=== PATIENT | female | born 1970 | race Caucasian/White ===

== ENCOUNTER → 2020-01-05 | Day surgery (SDC) | payer OTHER ==
[~2020-01-05] MED LIST: FENTANYL CITRATE/PF 100MCG/2 ML INJ ONE; LIDOCAINE HCL 2% LOCAL INJ 5 ML SDV VIAL INJ ONE; MIDAZOLAM HCL 2 MG/2 ML VIAL ONE; MULTI-VITAMIN1 EACH PO; PROPOFOL IV EMULSION 10 MG/ML 20 ML VIAL ONE; SYNTHROID75 MCG PO
[2020-01-05 07:50] VITALS: BP 118/78
--- NOTE | 2020-01-05 13:19 | Operative Report ---
DATE OF PROCEDURE: 01/05/2020 SURGEON: Sarwat Simpson MD PREOPERATIVE DIAGNOSIS: Chronic gastroesophageal reflux disease. POSTOPERATIVE DIAGNOSES: 1. Hiatal hernia. 2. Esophagitis. 3. Chronic gastroesophageal reflux disease. PREOPERATIVE INDICATION: Assess for upper GI, mucosal disease. PROCEDURE: Esophagogastroduodenoscopy with esophageal biopsy (CPT 59067). ANESTHESIA: Moderate sedation with IV propofol. ASSISTANTS: None. FLUIDS: As per anesthesia. EBL: Minimal. DRAINS: None. COMPLICATIONS: None. SPECIMENS: Esophageal biopsy x2 with cold forceps. GRAFTS: None. FINDINGS: 1. Small hiatal hernia. 2. Distal esophagitis with mild erythema. PROCEDURE IN DETAIL: The patient was brought to the endoscopy suite and was sedated with IV propofol. A preprocedure pause was performed identifying the patient and the intended procedure. An adult sized endoscope was introduced to the oropharynx and guided to the 2nd portion of the duodenum. No gastric or duodenal abnormalities were noted. There was a small hiatal hernia with distal esophagitis circumferentially at the GE junction. This was biopsied x2 with the cold forceps. Prior to removing the endoscope, the stomach was desufflated. The patient tolerated the procedure well. Type of wound is type 1, clean. Sarwat Simpson MD [facility] /[id number]
== END | disposition home or self-care (01) ==
LOC: OR 05:13
PROVIDERS: ATTEND Surgery
DX: K21.0 Gastro-esophageal reflux disease with esophagitis (principal); K44.9 Diaphragmatic hernia without obstruction or gangrene; G47.33 Obstructive sleep apnea (adult) (pediatric); E03.9 Hypothyroidism, unspecified; I10 Essential (primary) hypertension; E66.01 Morbid (severe) obesity due to excess calories; E78.5 Hyperlipidemia, unspecified; Z88.0 Allergy status to penicillin; Z01.812 Encounter for preprocedural laboratory examination; Z11.59 Encounter for screening for other viral diseases; Z68.35 Body mass index [BMI] 35.0-35.9, adult
CPT/HCPCS: 43239; 87635; 88305; 93005; J2001; J2250; J2704; J3010

== ENCOUNTER 2020-06-21 05:58 | Inpatient (IN) | payer OTHER ==
[~2020-06-21] VITALS: Ht 167.6 cm; Wt 102.1 kg
[~2020-06-21 05:58] MED LIST changes: -FENTANYL CITRATE/PF 100MCG/2 ML INJ ONE; +FISH OIL 1,0001 EAC2 PO; -LIDOCAINE HCL 2% LOCAL INJ 5 ML SDV VIAL INJ ONE; -MIDAZOLAM HCL 2 MG/2 ML VIAL ONE; -PROPOFOL IV EMULSION 10 MG/ML 20 ML VIAL ONE; +VIT D PO; +ZINC SULFATE220 MG PO
[2020-06-21] MEDS ORDERED: LEVOFLOXACIN 500MG/D5W 100ML 100 ML IV ONE (06:29)
[2020-06-21] MEDS ORDERED: BUPIVACAINE 0.25% 30ML SDV ONE (07:23)
[2020-06-21] MEDS ORDERED: HYDROMORPHONE 1MG/1ML INJ ONE (08:42)
[2020-06-21] MEDS ORDERED: ACETAMINOPHEN 1000 MG/100 ML 100 ML IV ONE (08:42)
[2020-06-21] MEDS ORDERED: PROMETHAZINE HCL (IM) 25 MG/ML VIAL IM ONE (10:03)
--- OUTSIDE RECORDS SUMMARY | 2020-06-21 10:21 | XMS REPORT | Clinical Summary ---
Author Author [facility] Organization [place] [facility] Address Unknown Phone Unavailable Care Team Providers Care Sea Foam Kiss Maker Name Role Phone Asiya Patel MD PCP Allergies Comments Active Allergy Reactions Severity Noted Date Penicillins Anaphylaxis High 01/11/2015 Medications End Date Status Medication Sig Dispensed Refills Start Date Active multivitamin,hp-avhc-Zl-F Take 1 tablet 0 A-min (UNI-THERA M) by mouth. 27-0.4 mg tablet 09/09/2020 Active clobetasoL (TEMOVATE) Apply 30 g 0 08/23 0.05 % ointment topically 2 0 (two) times a day. Active Synthroid 75 mcg tablet TAKE ONE (1) 30 tablet 0 1 TABLET (75 0 MCG TOTAL) BY MOUTH EVERY MORNING. (NEEDS APPT). 11/06/2019 Discontinued (Reorder) SYNTHROID 75 mcg tablet 0 0 11/06/2019 Discontinued (Therapy comple janice) ondansetron ODT Take 4 mg by 0 (ZOFRAN-ODT) 4 MG mouth. 9 disintegrating tablet 11/06/2019 Discontinued (Therapy comple janice) buPROPion XL (WELLBUTRIN Take 1 tablet 30 tablet 1 XL) 150 MG 24 hr tablet (150 mg 0 total) by mouth daily. 11/06/2019 Discontinued (Therapy comple janice) escitalopram (LEXAPRO) 10 Take 1 tablet 90 tablet 1 MG tablet (10 mg total) 0 by mouth daily for 90 days. Discontinued (Reorder) Synthroid 75 mcg tablet Take 1 tablet 90 tablet 1 (75 mcg 0 total) by mouth every morning. Discontinued (Reorder) Synthroid 75 mcg tablet TAKE 1 TABLET 30 tablet 0 (75 MCG 0 TOTAL) BY MOUTH EVERY MORNING. Active Problems Problem Noted Date FHx: kidney cancer 09/10/2019 Overview: sister, early age FHx: type 2 diabetes mellitus 09/10/2019 Gall stone 09/10/2019 Cedric's thyroiditis 09/10/2019 Hypothyroid 09/10/2019 Scoliosis 09/10/2019 Anxiety 12/12/2016 Fatigue 12/12/2016 Mild depression 12/12/2016 Encounters Care Team Description Date Type Specialty Asiya Patel MD 06/17/2020 Refill Internal Medicine Asiya Patel MD 05/18/2020 Refill Internal Medicine Asiya Patel MD BMI 35.0-35.9,adult (Primary Dx); Mixed hyperlipidemia 11/28/2019 Telemedicine Internal Medicine Asiya Patel MD 11/21/2019 Telephone Internal Medicine Asiya Patel MD Mixed hyperlipidemia (Primary Dx); Stress; Dyspepsia 11/06/2019 Telemedicine Internal Medicine 11/04/2019 Amarilys Robles MA 10/15/2019 Telephone Internal Medicine 10/01/2019 Travel Asiya Patel MD 09/18/2019 Telephone Internal Medicine Asiya Patel MD Routine general medical examination at a health care facility (Primary Dx); Screening for diabetes mellitus; 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; Abnormal menstrual cycle; History of endometrial ablation; Anxiety and depression; Calculus of gallbladder without cholecystitis without obstruction; Kidney stone; Abnormal blood chemistry; Restless sleeper; Screening for lipoid disorders; Family history of breast cancer in female; Fatigue, unspecified type; BMI 34.0-34.9,adult 09/10/2019 Office Visit Internal Medicine after 06/21/2019 Immunizations Name Administration Dates Next Due FLUZONE QUAD 04/04/2018, 05/16/2015 FLUZONE QUAD PF 05/07/2019 Tdap 09/16/2015 Surgical History Surgery Date Site/Laterality Comments REDUCTION MAMMAPLASTY SECTION Medical History Medical History Date Comments Hyperthyroidism Depression Anxiety Family History Medical History Relation Name Comments Pancreatic cancer Father Breast cancer Mother Breast cancer Sister Kidney cancer Sister Relation Name Status Comments Father Mother Alive Sister Alive Social History Date Tobacco Use Types Packs/Day Years Used Never Smoker Smokeless Tobacco: Never Used Drinks/Week oz/Week Comments Alcohol Use Yes Alcohol Habits Answer Date Recorded How often do you have a drink containing alcohol? Monthly or less 09/10/2019 How many drinks containing alcohol do you have on 1 or 2 09/10/2019 a typical day when you are drinking? How often do you have six or more drinks on one Never 09/10/2019 occasion? Sex Assigned at Date Recorded Not on file Last Filed Vital Signs Reading Time Taken Comments Vital Sign 113/79 09/10/2019 1:11 PM RESIDENT BUYER Blood Pressure 70 09/10/2019 1:11 PM RESIDENT BUYER Pulse - - Temperature 20 09/10/2019 1:11 PM RESIDENT BUYER Respiratory Rate 94% 09/10/2019 1:11 PM RESIDENT BUYER Oxygen Saturation - - Inhaled Oxygen Concentration 99.8 kg (220 lb) 11/28/2019 1:39 PM CDT Weight 167.6 cm (5' 6") 09/10/2019 1:11 PM RESIDENT BUYER Height 35.51 09/10/2019 1:11 PM RESIDENT BUYER Body Mass Index Plan of Treatment Health Maintenance Due Date Last Done Comments CERVICAL CANCER SCREENING 1991 INFLUENZA VACCINE 02/21/2020 05/07/2019, 04/04/2018, 05/16/2015 BREAST CANCER SCREENING 2020 COLONOSCOPY SCREENING 2020 SHINGLES VACCINES (#1) 2020 Procedures Comments Procedure Name Priority Date/Time Associated Diag nosis MAGNESIUM, RBC Routine 09/16/2019 Fatigue, unspec ified type 11:21 AM RESIDENT BUYER CRP HIGH SENSITIVITY Routine 09/16/2019 Routine g eneral medical 11:21 AM RESIDENT BUYER examination at a [facility] facility INSULIN, RANDOM Routine 09/16/2019 Routine genera l medical 11:21 AM RESIDENT BUYER examination at a [facility] facility THYROID PEROXIDASE Routine 09/16/2019 Routine gen eral medical ANTIBODY 11:21 AM RESIDENT BUYER examination at a [facility] 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 ESTRADIOL LEVEL Routine 09/16/2019 Routine genera l medical 11:21 AM RESIDENT BUYER examination at a [facility] FSH AND LH Routine 09/16/2019 Routine general medical 11:21 AM RESIDENT BUYER examination at a [facility] VITAMIN D 25 HYDROXY Routine 09/16/2019 Routine g eneral medical LEVEL 11:21 AM RESIDENT BUYER examination at a [facility] BMI 34.0-34.9,adult VITAMIN B12 LEVEL Routine 09/16/2019 Routine gene ral medical 11:21 AM RESIDENT BUYER examination at a [facility] Fatigue, unspecified type BMI 34.0-34.9,adult THYROID STIMULATING Routine 09/16/2019 Routine ge neral medical HORMONE 11:21 AM RESIDENT BUYER examination at a [facility] 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 Fatigue, unspecified type URINALYSIS, COMPLETE, Routine 09/16/2019 Routine general medical WITH REFLEX TO CULTURE 11:21 AM RESIDENT BUYER examination at a [facility] LIPID PANEL Routine 09/16/2019 Routine general medical 11:21 AM RESIDENT BUYER examination at a [facility] HEMOGLOBIN A1C Routine 09/16/2019 Routine general medical 11:21 AM RESIDENT BUYER examination at a [facility] Abnormal blood chemistry Screening for lipoid disorders COMPREHENSIVE METABOLIC Routine 09/16/2019 Routin e general medical PANEL 11:21 AM RESIDENT BUYER examination at a [facility] Restless sleeper CBC WITH PLATELET AND Routine 09/16/2019 Routine general medical DIFFERENTIAL 11:21 AM RESIDENT BUYER examination at a [facility] URINE CULTURE Routine 09/16/2019 11:21 AM RESIDENT BUYER HELICOBACTER PYLORI Routine 09/16/2019 Routine ge neral medical BREATH TEST 11:21 AM RESIDENT BUYER examination at a [facility] after 06/21/2019 Results * URINALYSIS, COMPLETE, WITH REFLEX TO CULTURE (09/16/2019 11:21 AM RESIDENT BUYER) Color, UA YELLOW YELLOW [facility] [place] Appearance CLEAR CLEAR [facility] [place] Specific 1.009 1.001 - 1.035 [facility] gravity, urine [facility] [place] pH, urine 6.0 5.0 - 8.0 [facility] [place] Glucose, urine NEGATIVE NEGATIVE [facility] [place] Bilirubin, UA NEGATIVE NEGATIVE [facility] [place] Ketones, UA 1+ (A) NEGATIVE [facility] [place] Occult blood, 1+ (A) NEGATIVE [facility] urine [facility] [place] Protein, UA NEGATIVE NEGATIVE [facility] [place] Nitrite, UA NEGATIVE NEGATIVE [facility] [place] Leukocyte TRACE (A) NEGATIVE [facility] esterase, UA [facility] [place] WBC, UA NONE SEEN < OR = 5 /HPF [facility] [place] RBC, UA 0-2 < OR = 2 /HPF [facility] [place] Squamous 0-5 < OR = 5 /HPF [facility] epithelial [facility]NOSTICS cells, UA [place] Bacteria, UA NONE SEEN NONE SEEN /HPF [facility] [place] Hyaline casts, NONE SEEN NONE SEEN /LPF [facility] UA [facility] [place] Reflex CULTURE INDICATED - RESULTS TO [facility] FOLLOW [facility] [place] Specimen Narrative Performed At FASTING:YES [facility] FASTING: YES Resulting Agency Comment Performing Organization Information: Site ID: RGA Name: [facility] Address: [address] [place] [phone] Director: Jean Paul Hatfield Performing Organization Address City/State/ZIP Code P richard Number [facility] [address] [phone] * Thyroperoxidase antibody (09/16/2019 11:21 AM RESIDENT BUYER) Thyroperoxidase 1 <9 IU/mL [facility] Ab [facility] ING II Specimen Blood Narrative Performed At FASTING:YES [facility] FASTING: YES Resulting Agency Comment Performing Organization Information: Site ID: IG [facility]: [facility] Address: [address] [place] [address] Director: Dr. Jean Paul Hatfield Performing Organization Address City/State/ZIP Code P richard Number [facility] [address] [place] [address] II * Insulin, random (09/16/2019 11:21 AM RESIDENT BUYER) Insulin 8.1 uIU/mL [facility] Comment: [facility] Reference Range < or ING II = 19.6 Risk: Optimal < or = 19.6 Moderate NA High >19.6 Adult cardiovascular event risk category cut points (optimal, moderate, high) are based on [facility] population data from 06/2011. This insulin assay shows strong cross-reactivity for some insulin analogs (lispro, aspart, and glargine) and much lower cross-reactivity with others (detemir, glulisine). Specimen Blood Narrative Performed At FASTING:YES [facility] FASTING: YES Resulting Agency Comment Performing Organization Information: Site ID: IG Name: [facility] Address: [address] [place] [phone] Director: Dr. Jean Paul Hatfield Performing Organization Address [facility] P richard Number [id number] [address] II * Helicobacter pylori breath test (09/16/2019 11:21 AM RESIDENT BUYER) H. pylori NOT DETECTED NOT DETECTED [facility] breath test Comment: DIAGNOSTICS Antimicrobials, proton pump ADAMS inhibitors, and bismuth preparations are known to suppress H. pylori, and ingestion of these prior to H. pylori diagnostic testing may lead to false negative results. If clinically indicated, the test may be repeated on a new specimen obtained two weeks after discontinuing treatment. However, a positive result is still clinically valid. Specimen Narrative Performed At FASTING:YES [facility] FASTING: YES Resulting Agency Comment Performing Organization Information: Site ID: RGA Name: [facility] Address: [address] [place] [phone] Director: Jean Paul Hatfield Performing Organization Address [facility] P richard Number [facility] [address] [phone] * FSH and LH (09/16/2019 11:21 AM RESIDENT BUYER) Follicle 19.6 mIU/mL [facility] stimulating Comment: DIAGNOSTICS hormone [place] Reference Range Follicular Phase 2.5-10.2 Mid-cycle Peak 3.1-17.7 Luteal Phase 1.5- 9.1 Postmenopausal 23.0-116.3 Luteinizing 9.5 mIU/mL [facility] hormone Comment: DIAGNOSTICS Reference Range [place] Follicular Phase 1.9-12.5 Mid-Cycle Peak 8.7-76.3 Luteal Phase 0.5-16.9 Postmenopausal 10.0-54.7 Specimen Blood Narrative Performed At FASTING:YES [facility] FASTING: YES Resulting Agency Comment Performing Organization Information: Site ID: CAMILA Name: [facility] Address: [address] [place] [phone] Director: Jean Paul Hatfield Performing Organization Address [facility] P richard Number [place] [phone] * Vitamin D 25 hydroxy level (09/16/2019 11:21 AM RESIDENT BUYER) Vitamin D, 39 30 - 100 ng/mL [facility] 25-hydroxy Comment: DIAGNOSTICS Vitamin D Status [place] 25-OH Vitamin D: Deficiency: <20 ng/mL Insufficiency: 20 - 29 ng/mL Optimal: > or = 30 ng/mL For 25-OH Vitamin D testing on patients on D2-supplementation and patients for whom quantitation of D2 and D3 fractions is required, the QuestAssureD(TM) 25-OH VIT D, (D2,D3), LC/MS/MS is recommended: order code 64353 (patients >2yrs). For more information on this test, go to: http://education.Medivo.com/faq/NDS244 (This link is being provided for informational/educational purposes only.) Specimen Blood Narrative Performed At FASTING:YES [facility] FASTING: YES Resulting Agency Comment Performing Organization Information: Site ID: CAMILA Name: [facility] Address: [address] [place] [phone] Director: Jean Paul Hatfield Performing Organization Address [facility] P richard Number [place] [phone] * Estradiol level (09/16/2019 11:21 AM RESIDENT BUYER) Estradiol 24 pg/mL [facility] Comment: DIAGNOSTICS Reference Range [place] Follicular Phase: 19-144 Mid-Cycle: 64-357 Luteal Phase: 56-214 Postmenopausal: < or = 31 Reference range established on post-pubertal patient population. No pre-pubertal reference range established using this assay. For any patients for whom low Estradiol levels are anticipated (e.g. males, pre-pubertal children and hypogonadal/post-menopausal females), the [facility] Estradiol, Ultrasensitive, LCMSMS assay is recommended (order code 80890). Please note: patients being treated with the drug fulvestrant (Faslodex(R)) have demonstrated significant interference in immunoassay methods for estradiol measurement. The cross reactivity could lead to falsely elevated estradiol test results leading to an inappropriate clinical assessment of estrogen status. [facility] order code [id number], Ultrasensitive LC/MS/MS demonstrates negligible cross reactivity with fulvestrant. Specimen Blood Narrative Performed At FASTING:YES [facility] FASTING: YES Resulting Agency Comment Performing Organization Information: Site ID: RGA Name: [facility] Address: [address] [place] [phone] Director: Jean Paul Hatfield Performing Organization Address City/State/ZIP Code P richard Number [facility] [employer] [facility] [address] [place] [phone] * CBC with platelet and differential (09/16/2019 11:21 AM RESIDENT BUYER) WBC 7.2 3.8 - 10.8 [facility] Thousand/uL [facility] [place] RBC 4.44 3.80 - 5.10 [facility] Million/uL [facility] [place] HGB 13.8 11.7 - 15.5 g/dL [employer] [facility] HCT 40.7 35.0 - 45.0 % [employer] [place] MCV 91.7 80.0 - 100.0 fL [employer] [facility] [place] MCH 31.1 27.0 - 33.0 pg [employer] [facility] [place] MCHC 33.9 32.0 - 36.0 g/dL [employer]obby [place] RDW 12.3 11.0 - 15.0 % [employer] [facility] Platelet count 291 140 - 400 [facility] Thousand/uL [facility] MPV 9.8 7.5 - 12.5 fL [employer] [place] Neutrophils, 4,910 1,500 - 7,800 [facility] absolute cells/uL [facility] [place] Lymphocytes, 1,584 850 - 3,900 cells/uL [facility] absolute [facility] [place] Monocytes, 490 200 - 950 cells/uL [facility] absolute [facility] [place] Eosinophils, 173 15 - 500 cells/uL [facility] absolute [facility] [place] Basophils, 43 0 - 200 cells/uL [facility] absolute [facility] [place] Neutrophils 68.2 % [facility] [place] Lymphocytes 22.0 % [facility] [place] Monocytes 6.8 % [facility] [place] Eosinophils 2.4 % [facility] [place] Basophils + RC 0.6 % Hobby [place] Specimen Blood Narrative Performed At FASTING:YES [facility] FASTING: YES Resulting Agency Comment Performing Organization Information: Site ID: RGA Name: [facility] Address: [address] [place] [phone] Director: Jean Paul Hatfield Performing Organization Address [facility] P richard Number [employer] [facility] [address] [place] [phone] * Urine culture (09/16/2019 11:21 AM RESIDENT BUYER) Urine culture SEE NOTE [facility] Comment: DIAGNOSTICS CULTURE, URINE, ROUTINE [place] Micro Number: [id number] Test Status: Final Specimen Source: URINE Specimen Quality: Adequate Result: Single organism less than 10,000 CFU/mL isolated. These organisms, commonly found on external and internal genitalia, are considered colonizers. No further testing performed. Specimen Narrative Performed At FASTING:YES [facility] FASTING: YES Resulting Agency Comment Performing Organization Information: Site ID: RGA Name: [facility] Address: [address] [place] [phone] Director: Jean Paul Hatfield Performing Organization Address [facility] P richard Number [employer] [facility] [address] [place] [phone] * CRP high sensitivity (09/16/2019 11:21 AM RESIDENT BUYER) CRP, high 2.4 mg/L [facility] sensitivity Comment: [facility] Reference Range ING II Optimal <1.0 Lupe PS et al. Endocr Pract.2017;23(Suppl 2):1-87. For ages >17 Years: hs-CRP mg/L Risk According to AHA/CDC Guidelines <1.0 Lower relative cardiovascular risk. 1.0-3.0 Average relative cardiovascular risk. 3.1-10.0 Higher relative cardiovascular risk. Consider retesting in 1 to 2 weeks to exclude a benign transient elevation in the baseline CRP value secondary to infection or inflammation. >10.0 Persistent elevation, upon retesting, may be associated with infection and inflammation. Specimen Blood Narrative Performed At FASTING:YES [facility] FASTING: YES Resulting Agency Comment Performing Organization Information: Site ID: IG Name: [facility] Address: [address] [place] [address] Director: Dr. Jean Paul Hatfield Performing Organization Address City/State/ZIP Code P richard Number [employer] [facility] [address] [place] [address] II * T3 (09/16/2019 11:21 AM RESIDENT BUYER) T3 98 76 - 181 ng/dL [facility] [place] Specimen Blood Narrative Performed At FASTING:YES [facility] FASTING: YES Resulting Agency Comment Performing Organization Information: Site ID: RGA Name: [facility] Address: [address] [place] [phone] Director: Jean Paul Hatfield Performing Organization Address [facility]/ZIP [facility] P richard Number [employer] [address] [phone] * Thyroid stimulating hormone (09/16/2019 11:21 AM RESIDENT BUYER) TSH 1.84 mIU/L [facility] Comment: DIAGNOSTICS Reference Range [place] > or = 20 Years 0.40-4.50 Ranges First trimester 0.26-2.66 Second trimester 0.55-2.73 Third trimester 0.43-2.91 Specimen Blood Narrative Performed At FASTING:YES [facility] FASTING: YES Resulting Agency Comment Performing Organization Information: Site ID: RGA Name: [facility] Address: [address] [place] [phone] Director: Jean Paul Hatfield Performing Organization Address [facility] P richard Number [employer] [address] [phone] * T4, free (09/16/2019 11:21 AM RESIDENT BUYER) T4, free 1.3 0.8 - 1.8 ng/dL [facility] [employer] [place] Specimen Blood Narrative Performed At FASTING:YES [facility] FASTING: YES Resulting Agency Comment Performing Organization Information: Site ID: RGA Name: [facility] Address: [address] [place] [phone] Director: Jean Paul Hatfield Performing Organization Address City/[facility]/ZIP Code P richard Number [facility] [address] [phone] * Magnesium, RBC (09/16/2019 11:21 AM RESIDENT BUYER) Magnesium RBC 5.6 4.0 - 6.4 mg/dL [facility] Comment: DIAGNOSTICS This test was developed and [employer] its analytical performance ANGULO characteristics have been determined by [facility]. It has not been cleared or approved by the FDA. This assay has been validated pursuant to the CLIA regulations and is used for clinical purposes. Specimen Blood Narrative Performed At FASTING:YES [facility] FASTING: YES Resulting Agency Comment Performing Organization Information: Site ID: SLI [facility]: [facility] Address: [address] [place] [phone] Director: Josué Aleman M.D., Ph.D Performing Organization Address City/[facility]/ZIP Code P richard Number [facility] [employer] [phone] [place] * Hemoglobin A1c (09/16/2019 11:21 AM RESIDENT BUYER) Hemoglobin A1C 5.1 <5.7 % of total Hgb [facility] Comment: DIAGNOSTICS For the purpose of screening [place] for the presence of diabetes: <5.7% Consistent with the absence of diabetes 5.7-6.4% Consistent with increased risk for diabetes (prediabetes) > or =6.5% Consistent with diabetes This assay result is consistent with a decreased risk of diabetes. Currently, no consensus exists regarding use of hemoglobin A1c for diagnosis of diabetes in children. According to [place] Diabetes Association (ADA) guidelines, hemoglobin A1c <7.0% represents optimal control in non- diabetic patients. Different metrics may apply to specific patient populations. Standards of Medical Care in Diabetes(ADA). Specimen Blood Narrative Performed At FASTING:YES [facility] FASTING: YES Resulting Agency Comment Performing Organization Information: Site ID: RGA Name: [facility] Address: [address] [place] [phone] Director: Jean Paul Hatfield Performing Organization Address City/[facility]/ZIP [facility] P richard Number [facility] [address] [phone] * Vitamin B12 level (09/16/2019 11:21 AM RESIDENT BUYER) Vitamin B12 744 200 - 1,100 pg/mL [employer] [facility] Specimen Blood Narrative Performed At FASTING:YES [facility] FASTING: YES Resulting Agency Comment Performing Organization Information: Site ID: RGA Name: [facility] Address: [address] [place] [phone] Director: Jean Paul Hatfield Performing Organization Address City/[facility] P richard Number [place] [phone] * Lipid panel (09/16/2019 11:21 AM RESIDENT BUYER) Cholesterol, 182 <200 mg/dL [facility] total [facility] [place] HDL cholesterol 52 > OR = 50 mg/dL [facility] [place] Triglycerides 90 <150 mg/dL [facility] [place] LDL cholesterol 111 (H) mg/dL (calc) [facility] calculated Comment: DIAGNOSTICS Reference range: <100 [place] Desirable range <100 mg/dL for primary prevention; <70 mg/dL for patients with CHD or diabetic patients with > or = 2 CHD risk factors. LDL-C is now calculated using the Urvashi calculation, which is a validated novel method providing better accuracy than the Friedewald equation in the estimation of LDL-C. Sammy LANZA et al. CURLY. 2013;310(19): 4020-0743 (http://education.SocialMedia.com.Pop.it/faq/VZM794) Cholesterol/HDL 3.5 <5.0 (calc) [facility] ratio [facility] [place] Non-HDL 130 (H) <130 mg/dL (calc) [facility] cholesterol Comment: DIAGNOSTICS For patients with diabetes [place] plus 1 major ASCVD risk factor, treating to a non-HDL-C goal of <100 mg/dL (LDL-C of <70 mg/dL) is considered a therapeutic option. Specimen Blood Narrative Performed At FASTING:YES [facility] FASTING: YES Resulting Agency Comment Performing Organization Information: Site ID: [id number] Name: [facility] Address: [address] [place] [phone] Director: Jean Paul Hatfield Performing Organization Address City/[facility] Code P richard Number Sh[place] [phone] * Comprehensive metabolic panel (09/16/2019 11:21 AM RESIDENT BUYER) Glucose 90 65 - 99 mg/dL [facility] Comment: DIAGNOSTICS Fasting [place] reference interval BUN 12 7 - 25 mg/dL [facility] [place] Creatinine 0.96 0.50 - 1.10 mg/dL [facility] [place] EGFR Non-Afr. 69 > OR = 60 [facility] [place] mL/min/1.73m2 [facility] [place] EGFR 80 > OR = 60 [facility] [place] mL/min/1.73m2 [facility] [place] BUN/creatinine NOT APPLICABLE 6 - 22 (calc) [facility] ratio [facility] [place] Sodium 139 135 - 146 mmol/L [facility] [place] Potassium 4.1 3.5 - 5.3 mmol/L [facility] [place] Chloride 104 98 - 110 mmol/L [facility] [place] CO2 24 20 - 32 mmol/L [facility] [place] Calcium 9.6 8.6 - 10.2 mg/dL [facility] [place] Protein 7.0 6.1 - 8.1 g/dL [facility] [place] Albumin, S 4.6 3.6 - 5.1 g/dL [facility] [place] Globulin, total 2.4 1.9 - 3.7 g/dL [facility] (calc) [facility] [place] Albumin/globuli 1.9 1.0 - 2.5 (calc) [facility] n ratio [facility] [place] Total bilirubin 0.6 0.2 - 1.2 mg/dL [facility] [place] Alkaline 53 31 - 125 U/L [facility] phosphatase [facility] [place] AST 20 10 - 35 U/L [facility] [place] ALT 17 6 - 29 U/L [facility] [place] Specimen Blood Narrative Performed At FASTING:YES [facility] FASTING: YES Resulting Agency Comment Performing Organization Information: Site ID: [id number] Name: [facility] Address: [address] [place] [phone] Director: Jean Paul Hatfield Performing Organization Address City/State/ZIP Code P richard Number Shozu [place] [address] [place] [address] [phone] after 06/21/2019 Insurance Type Payer Benefit Subscriber ID Effective Phone Address Plan / Dates Group HMO CIGNA CIGNA OPEN [id number] ACCESS/NET resent WORK [id number] Advance Directives For more information, please contact: [phone] Patient Truck Driver Supervisor Explanation Type Date Recorded Advance Directives, Living Will and Medical Power of Shackler
--- OUTSIDE RECORDS SUMMARY | 2020-06-21 10:21 | XMS REPORT | Continuity of Care Document ---
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 Name Role Phone RE2 Information Exchange Unavailable Un available Problems Problem Status Onset Date Classification Date Reported Comments Source 611.1 Active 04/20/2014 [facility] Cervical scoliosis (finding) A ctive Problem 06/2014 [facility] Hypothyroidism (disorder) Acti ve Problem 06/2014 [facility] Premature atrial contraction (disorder) Resolved Problem 05/03/2014 1approx 10 yrs ago 2PAC's intermittently [place] Precordial pain Active Diagnosis 01/23/2020 [facility] Obesity (BMI 30-39.9) Active Problem 01/23/2020 [facility] Thyroid dysfunction Active Diagnosis 01[facility]23[facility]2020 [facility] Medic[facility] Medication Details Route Status Patient Instructions Ordering Provider Order Date Source Acetaminophen 325 MG / Hydrocodone Shireen trate 10 MG Oral Tablet [[place] ] 1 tab, Route: PO, Dosing Weight 80.909, kg, ONCE, Start date: 05/01/14 13:25:00, Stop date: 05/01/14 13:25:00 Inactive 05/01/2014 [facility] Oxycodone 5 mg, Route: PO, Lane g form: TAB, Q4H, Dosing Weight 80.909, kg, PRN Pain Score 4-6, Start date: 05/01/14 13:25:00, Duration: 30 day, Stop date: 05/31/14 13:24:00 Inactive 05/01/2014 [facility] Metoprolol 1 mg, Route: IVP, Q 5Min, Dosing Weight 80.909, kg, PRN Other -See Comment, Start date: 05/01/14 13:25:00, Duration: 5 doses or times, Stop date: Limited # of times Inactive 05/01/2014 [facility] Hydralazine 10 mg, Route: IVP, Q20Min, Dosing Weight 80.909, kg, PRN Elevated BP, Start date: 05/01/14 13:25:00, Duration: 2 doses or times, Stop date: Limited # of times Inactive 05/01/2014 [facility] Hydromorphone 0.5 mg, Route: I [employer], Q5Min, Dosing Weight 80.909, kg, PRN Pain Score 7-10, Start date: 05/01/14 13:25:00, Duration: 4 doses or times, Stop date: Limited # of times Inactive 05/01/2014 [facility] Fentanyl 25 microgram, Route: IVP, Q5Min, Dosing Weight 80.909, kg, PRN Pain Score 4-6, Start date: 05/01/14 13:25:00, Duration: 4 doses or times, Stop date: Limited # of times Inactive 05/01/2014 [facility] Naloxone 0.04 mg, Route: IVP, Q2MIN, Dosing Weight 80.909, kg, PRN Narcotic Reversal, Start date: 05/01/14 13:25:00, Duration: 8 doses or times, Stop date: Limited # of times Inactive 05/01/2014 [facility] Flumazenil 0.2 mg, Route: IVP, PRN, Dosing Weight 80.909, kg, PRN Benzodiazepine Reversal, Initial dose, Start date: 05/01/14 13:25:00, Duration: 30 day, Stop date: 05/31/14 12:24:00 Inactive 05/01/2014 [facility] Ondansetron 4 mg, Route: IVP, ONCE, Dosing Weight 80.909, kg, PRN Nausea & Vomiting, Start date: 05/01/14 13:25:00 Inactive 05/01/2014 [facility] Hydromorphone 0.3 mg, Route: I [employer], Q3H, Dosing Weight 80.909, kg, PRN Pain Score 4-6, Start date: 05/01/14 12:51:00, Duration: 30 day, Stop date: 05/31/14 12:50:00 Inactive 05/01/2014 [facility] Clindamycin 900 mg, Route: IVP B, ONCE, Dosing Weight 80.909, kg, Start date: 05/01/14 6:42:00, Stop date: 05/01/14 6:42:00 Inactive 05/01/2014 [facility] Calcium Chloride 0.0014 MEQ/ML / Potassi um Chloride 0.004 MEQ/ML / Sodium Chloride 0.103 MEQ/ML / Sodium Lactate 0.028 MEQ/ML Injectable Solution 1,000 mL, Rate: 25 ml/hr, Infuse over: 4 0 hr, Route: IV, Dosing Weight 80.909 kg, Total Volume: 1,000, Start date: 05/01/14 6:12:00, Duration: 30 day, Stop date: 05/31/14 6:11:00 Inactive 05/01/2014 [facility] levothyroxine 75 mcg (0.075 mg) oral tablet 75 microgram = 1 tab, PO, Daily, # 30 tab, 0 Refill(s) Active 04/29/2014 [facility] multivitamin with minerals Multiple Alcira mins with Zinc oral capsule 1 cap, PO, Daily, # 60 cap, 0 Refill(s) Active 04/29/2014 [facility] Synthroid 1 tablet on an empty stomach in the morning Orally Active 75 MCG Orally Once a day [facility] Allergies, Adverse Reactions, Alerts Substance Category Reaction Severity Reaction type Status Date Reported Comments Source Penicillin G Benzathine Advers e Reaction Info Not Available Adverse Reaction Active 11/05/2018 [facility] pen[facility] Assertion Drug allergy Active [facility] Immunizations No Data Provided for This Section Results Order Name Results Value Reference Range Date Interpretation Comments Source URINE CHEM U Preg Negat jose j (05/01/14 6:18 AM) Negative 05/01/2014 [facility] Pathology Reports No Data Provided for This Section Diagnostic Reports No Data Provided for This Section Consultation Notes No Data Provided for This Section Discharge Summaries No Data Provided for This Section History and Physicals No Data Provided for This Section Vital Signs Vital Sign Value Date Comments Source Weight 202 11/05/2018 [facility] Height 66 0 11/05/2018 [facility] Heart Rate 80 11/05/2018 [facility] Diastolic (mm Hg) 70 11/05/2018 [facility] Systolic (mm Hg) 102 11/05/2018 [facility] Diastolic (mm Hg) 68 05/01/2014 [facility] Systolic (mm Hg) 107 05/01/2014 [facility] Systolic (mm Hg) 96 05/01/2014 [facility] Diastolic (mm Hg) 78 05/01/2014 [facility] Diastolic (mm Hg) 63 05/01/2014 [facility] Systolic (mm Hg) 106 05/01/2014 [facility] Respitory Rate 14 05/01/2014 [facility] Respitory Rate 14 05/01/2014 [facility] Respitory Rate 14 05/01/2014 [facility] Heart Rate 77 05/01/2014 [facility] Weight 80.909 04/29/2014 [facility] Height 167.64 cm 04/29/2014 [facility] BMI Calculated 28.79 04/29/2014 [facility] Heart Rate 59 04/29/2014 [facility] Temperature Oral (F) 98.0 F 04/29/2014 [facility] Encounters Location Location Details Encounter Type Encounter Number Reason For Visit Attending Provider ADM Date DC Date Status Source [facility] OBS Day Surgery [id number] Екатерина Jc 05/01/2014 05/01/2014 [facility] Procedures Procedure Code Date Perfomer Comments Source section [id number] [facility] st Epidural block [id number] [facility] st Extraction of wisdom tooth [phone] [facility] Laser uterosacral nerve ablation [id number] [facility] Assessment and Plan No Data Provided for This Section Plan of Care No Data Provided for This Section Social History Social History Date Source Social History TypeResponse Alcohol Previous treatment: None Smoking Status Never smoker, Exposure to Tobacco Smoke None, Cigarette Smoking Last 365 Days No, Reg Smoking Cessation Counseling No 04/29/2014 [facility] Family History No Data Provided for This Section Advance Directives No Data Provided for This Section Functional Status No Data Provided for This Section
--- OUTSIDE RECORDS SUMMARY | 2020-06-21 10:21 | XMS REPORT | Continuity of Care Document ---
Author Author [facility] t Organization [facility] Address [address] [place] [address] Phone Unavailable Care Team Providers Care Head Sawyer Name Role Phone Amanda BILLY, Jimmy Braden PCP Jimmy Esquivel MD Attphys Amarilys Payne MA Attphys Unavailable Екатерина Jc Attphys Payers Payer Name Policy Type Policy Number Effective Date Expiration Date Rudi toscano CIGNACIGNA OPEN ACCESS/[id number] 2015-PresentO [id number] 2015 00:00:00 Bryan Del Angel Problems Condition Name Condition Details Condition Category Status Onset Date Resolution Date Last Treatment Date Treating Clinician Comments Source FHx: kidney cancer FHx: kidney cancer Disease Active 2019-09-10 00:00:0 0 Overview: sister, early age Bryan Del Angel FHx: type 2 diabetes mellitus FHx: type 2 diabetes mellitus Disease Active 2019-09-10 00:00:00 Bryan Del Angel Gall stone Gall stone Disease Active 2019-09-10 00:00:00 Bryan Del Angel Cedric's thyroiditis Cedric's thyroiditis Disease Active 2019-09-10 00:00:[address] Hypothyroid Hypothyroid Disease Active 2019-09-10 00:00:00 Bryan Del Angel Scoliosis Scoliosis Disease Active 2019-09-10 00:00:00 Bryan Del Angel Anxiety Anxiety Disease Active 2016-12-12 00:00:00 Bryan Del Angel Fatigue Fatigue Disease Active 2016-12-12 00:00:00 Bryan Del Angel Mild depression Mild depression Disease Active 2016-12-12 00:00:00 Bryan Del Angel 611.1 611. 1 Active 04/20/2014 [facility] Diagnosis Active 2014-04-20 00:00:00 2014-05-07 15:54:00 [facility] Premature atrial contraction (disorder) Premature atrial contraction (disorder) Resolved Problem 05/03/2014 1approx 10 yrs [id number]'s intermittently [facility] Problem Resolved 2014-05-03 22:44:36 [facility] Cervical scoliosis (finding) C ervical scoliosis (finding) Active Problem 05/03/2014 [facility] Problem Active 2014-05-03 22:44:36 [facility] Precordial pain Prec ordial pain Active Diagnosis 01/23/2020 [facility] Diagnosis Active 2020-01-23 02:56:34 [facility] Obesity (BMI 30-39.9) Obes ity (BMI 30-39.9) Active Problem 01/23/2020 [facility] Problem Active 2020-01-23 02:56:34 [facility] Thyroid dysfunction Thyr oid dysfunction Active Diagnosis 01/23/2020 [facility] Diagnosis Active 2020-01-23 02:56:34 [facility] Allergies, Adverse Reactions, Alerts Allergy Name Allergy Type Status Severity Reaction(s) Onset Date Inacti ve Date Treating Clinician Comments Source Penicillin G Benzathine Penicillin G Benzathine Active Info Not Available 2018-11-05 00:00:00 [facility] gil Penicillins Propensity to adverse reactions to drug Active Anaphylaxis 2015-01-11 00:00:00 [facility] penicillins penicillins Active [facility] Family History Family Member Diagnosis Comments Start Date Stop Date Source Natural father Pancreatic cancer Eliane Del Angel Natural mother Breast cancer [facility] Natural sister Breast cancer [facility] Natural sister Kidney cancer [facility] Social History Social Habit Start Date Stop Date Quantity Comments Source Sex Assigned At Eliane Del Angel Tobacco use and exposure 2019-11-28 00:00:00 2019-11-28 00:00:00 Nolan nichols used Bryan Del Angel Alcohol intake 2019-11-28 00:00:00 2019-11-28 00:00:00 Current drinker of alcohol (finding) Bryan Del Angel History SDOH Alcohol Frequency 2019-09-10 00:00:00 2019-09-10 00:00:0 0 2 Bryan Del Angel History SDOH Alcohol Std Drinks 2019-09-10 00:00:00 2019-09-10 00:00: 00 1 Bryan Del Angel History SDOH Alcohol Binge 2019-09-10 00:00:00 2019-09-10 00:00:00 1 Bryan Del Angel Social History 2014-04-29 14:34:07 2014-04-29 14:34:07 [facility] Smoking Status Start Date Stop Date Source Never smoker Bryan downs Medications Ordered Medication Name Filled Medication Name Start Date Stop Da te Current Medication? Ordering Clinician Indication Dosage Frequency Signature (SIG) Comments Components Source Synthroid 75 mcg tablet 2020-06-20 00:00:00 Yes TAKE ONE (1) TABLET (75 MCG TOTAL) BY MOUTH EVERY MORNING. (NEEDS APPT). Bryan Del Angel Synthroid 75 mcg tablet 2020-05-19 00:00:00 No 75ug QD TAKE 1 TABLET (75 MCG TOTAL) BY MOUTH EVERY MORNING. [place] [facility] Synthroid 2020-01-23 02:56:34 Yes Ahmed Ahmed 1 tablet on an empty stomach in the morning [facility] Synthroid 75 mcg tablet 2019-11-06 00:00:00 No 75ug QD Take 1 tablet (75 mcg total) by mouth every morning. Tint syed Del Angel multivitamin,qp-thux-Wr-FA-min (UNI-THERA M) 27-0.4 mg table t 2019-09-10 13:11:58 Yes 1{tbl} Take 1 tablet by mouth. Bryan Del Angel clobetasoL (TEMOVATE) 0.05 % ointment 2019-09-10 00:00 :00 2020-09-09 23:59:00 No Q.5D Apply topically 2 (two) times a day. Bryan Del Angel buPROPion XL (WELLBUTRIN XL) 150 MG 24 hr tablet 2019-09-10 00:00:00 2019-11-06 00:00:00 No 150mg QD Take 1 tablet (150 mg total) by mouth daily. Bryan Del Angel escitalopram (LEXAPRO) 10 MG tablet 2019-09-10 00:00:0 0 2019-11-06 00:00:00 No 10mg QD Take 1 tablet (10 mg total) by mouth kal ly for 90 days. Bryan Del Angel SYNTHROID 75 mcg tablet 2019-08-31 00:00:00 2019-11-06 00:00:00 No Bryan Del Angel ondansetron ODT (ZOFRAN-ODT) 4 MG disintegrating tablet 2019-03-25 00:00:00 2019-11-06 00:00:00 No 4mg Take 4 mg by mouth. Bryan Del Angel Acetaminophen 325 MG / Hydrocodone Bitartrate 10 MG Or al Tablet [Burns 10/325] 2014-05-01 18:25:00 No 1 ta b, Route: PO, Dosing Weight 80.909, kg, ONCE, Start date: 05/01/14 13:25:00, Stop date: 05/01/14 13:25:00 [facility] Oxycodone 2014-05-01 18:25:00 No 5 mg, Route: PO, Drug form: TAB, Q4H, Dosing Weight 80.909, kg, PRN Pain Score 4-6, Start date: 05/01/14 13:25:00, Duration: 30 day, Stop date: 05/31/14 13:24:00 [facility] Metoprolol 2014-05-01 18:25:00 No 1 mg, Route: IVP, Q5Min, Dosing Weight 80.909, kg, PRN Other -See Comment, Start date: 05/01/14 13:25:00, Duration: 5 doses or times, Stop date: Limited # of times [facility] Hydralazine 2014-05-01 18:25:00 No 10 mg, Route: IVP, Q20Min, Dosing Weight 80.909, kg, PRN Elevated BP, Start date: 05/01/14 13:25:00, Duration: 2 doses or times, Stop date: Limited # of times [facility] Hydromorphone 2014-05-01 18:25:00 No 0.5 mg, Route: IVP, Q5Min, Dosing Weight 80.909, kg, PRN Pain Score 7-10, Start date: 05/01/14 13:25:00, Duration: 4 doses or times, Stop date: Limited # of times [facility] Fentanyl 2014-05-01 18:25:00 No 25 microgram, Route: IVP, Q5Min, Dosing Weight 80.909, kg, PRN Pain Score 4-6, Start date: 05/01/14 13:25:00, Duration: 4 doses or times, Stop date: Limited # of times [facility] Naloxone 2014-05-01 18:25:00 No 0.04 mg, Route: IVP, Q2MIN, Dosing Weight 80.909, kg, PRN Narcotic Reversal, Start date: 05/01/14 13:25:00, Duration: 8 doses or times, Stop date: Limited # of times [facility] Flumazenil 2014-05-01 18:25:00 No 0.2 mg, Route: IVP, PRN, Dosing Weight 80.909, kg, PRN Benzodiazepine Reversal, Initial dose, Start date: 05/01/14 13:25:00, Duration: 30 day, Stop date: 05/31/14 12:24:00 [facility] Ondansetron 2014-05-01 18:25:00 No 4 mg, Route: IVP, ONCE, Dosing Weight 80.909, kg, PRN Nausea & Vomiting, Start date: 05/01/14 13:25:00 [facility] Hydromorphone 2014-05-01 17:51:00 No 0.3 mg, Route: IVP, Q3H, Dosing Weight 80.909, kg, PRN Pain Score 4-6, Start date: 05/01/14 12:51:00, Duration: 30 day, Stop date: 05/31/14 12:50:00 [facility] Clindamycin 2014-05-01 11:42:00 No 900 mg, Route: IVPB, ONCE, Dosing Weight 80.909, kg, Start date: 05/01/14 6:42:00, Stop date: 05/01/14 6:42:00 [facility] Calcium Chloride 0.0014 MEQ/ML / Potassi um Chloride 0.004 MEQ/ML / Sodium Chloride 0.103 MEQ/ML / Sodium Lactate 0.028 MEQ/ML Injectable Solution 2014-05-01 11:12:00 No 1,000 mL, Rate: 25 ml/hr, Infuse over: 40 hr, Route: IV, Dosing Weight 80.909 kg, Total Volume: 1,000, Start date: 05/01/14 6:12:00, Duration: 30 day, Stop date: 05/31/14 6:11:00 [facility] levothyroxine 75 mcg (0.075 mg) oral tablet 2014-04-29 14:40:00 Yes 75 microgram = 1 tab, PO, Daily, # 30 tab, 0 Refill(s) Brandon Alvarez multivitamin with minerals Multiple Vitamins with Zinc oral capsule 2014-04-29 14:40:00 Yes 1 cap, PO, Daily, # 60 cap, 0 Refill(s) Brandon Alvarez Immunizations Ordered Immunization Name Filled Immunization Name Date Status Comments Source FLUZONE QUAD PF 2019-05-07 00:00:00 Completed Bryan Del Angel FLUZONE QUAD 2018-04-04 00:00:00 Completed Eliane Del Angel Tdap 2015-09-16 00:00:00 Completed Yoandy Del Angel FLUZONE QUAD 2015-05-16 00:00:00 Completed Eliane Del Angel Vital Signs Vital Name Observation Time Observation Value Comments Source Body weight 2019-11-28 13:39:00 99.791 kg Bryan Del Angel BMI 2019-11-28 13:39:00 35.51 kg/m2 Bryan Del Angel Systolic blood pressure 2019-09-10 13:11:00 113 mm[Hg] Bryan Del Angel Diastolic blood pressure 2019-09-10 13:11:00 79 mm[Hg] Bryan Del Angel Heart rate 2019-09-10 13:11:00 70 /min Bryan Del Angel Respiratory rate 2019-09-10 13:11:00 20 /min Tin Del Angel Body height 2019-09-10 13:11:00 167.6 cm Bryan Del Angel Oxygen saturation in Arterial blood by Pulse oximetry 09-10 13:11:00 94 /min Bryan Del Angel Weight 2018-11-05 20:00:00 [facility] [place] Height 2018-11-05 20:00:00 [facility] Heart Rate 2018-11-05 20:00:00 [facility] Diastolic (mm Hg) 2018-11-05 20:00:00 [facility] Systolic (mm Hg) 2018-11-05 20:00:00 Jose R [facility] Diastolic (mm Hg) 2014-05-01 19:45:00 [facility] Systolic (mm Hg) 2014-05-01 19:45:00 Jose R [facility] Systolic (mm Hg) 2014-05-01 19:30:00 Jose R [facility] Diastolic (mm Hg) 2014-05-01 19:30:00 [facility] Diastolic (mm Hg) 2014-05-01 19:15:00 [facility] [place] Systolic (mm Hg) 2014-05-01 19:15:00 Jose R [facility] Respitory Rate 2014-05-01 19:00:00 [facility] [place] Respitory Rate 2014-05-01 18:45:00 [facility] [place] Respitory Rate 2014-05-01 18:30:00 [facility] [place] Heart Rate 2014-05-01 11:15:00 [facility] Weight 2014-04-29 14:28:00 [facility] Height 2014-04-29 14:28:00 167.64 cm [facility] BMI Calculated 2014-04-29 14:28:00 [facility] [place] Heart Rate 2014-04-29 14:28:00 [facility] Temperature Oral (F) 2014-04-29 14:28:00 98.0 F [facility] Procedures Procedure Date / Time Performed Performing Clinician Sourc e HELICOBACTER PYLORI BREATH TEST 2019-09-16 11:21:00 Brett Esquivel URINE CULTURE 2019-09-16 11:21:00 Asiya Esquivel CBC WITH PLATELET AND DIFFERENTIAL 2019-09-16 11:21:00 Ruben Esquivel COMPREHENSIVE METABOLIC PANEL 2019-09-16 11:21:00 Asiya Esquivel HEMOGLOBIN A1C 2019-09-16 11:21:00 Asiya Esquivel LIPID PANEL 2019-09-16 11:21:00 Asiya Esquivel URINALYSIS, COMPLETE, WITH REFLEX TO CULTURE 2019-09-16 11:2 1:00 Asiya Esquivel THYROID STIMULATING HORMONE 2019-09-16 11:21:00 Asiya Esquivel VITAMIN B12 LEVEL 2019-09-16 11:21:00 Asiya Esquivel [facility] VITAMIN D 25 HYDROXY LEVEL 2019-09-16 11:21:00 Asiya Esquivel FSH AND LH 2019-09-16 11:21:00 Asiya Esquivel ESTRADIOL LEVEL 2019-09-16 11:21:00 Esquivel, Asiya Del Angel T4, FREE 2019-09-16 11:21:00 EsquivelAsiya T3 2019-09-16 11:21:00 EsquivelAsiya THYROID PEROXIDASE ANTIBODY 2019-09-16 11:21:00 Asiya Esquivel Pi erre Bryan Del Angel INSULIN, RANDOM 2019-09-16 11:21:00 Asiya Esquivel CRP HIGH SENSITIVITY 2019-09-16 11:21:00 Asiya Esquivel Ho [facility] MAGNESIUM, RBC 2019-09-16 11:21:00 Asiya Esquivel section [facility] n Epidural block [facility] Extraction of wisdom tooth Memor ial [place] Laser uterosacral nerve ablation [facility] Plan of Care Planned Activity Planned Date Details Comments Source Future Scheduled Test 2020 00:00:00 BREAST CANCER SCRE ENING [code = BREAST CANCER SCREENING] [facility] Future Scheduled Test 2020 00:00:00 COLONOSCOPY SCREEN ING [code = COLONOSCOPY SCREENING] [facility] Future Scheduled Test 2020 00:00:00 SHINGLES VACCINES (#1) [code = SHINGLES VACCINES (#1)] [facility] Future Scheduled Test 2020-02-21 00:00:00 INFLUENZA VACCINE [code = INFLUENZA VACCINE] [facility] Future Scheduled Test 1991 00:00:00 Screening for errol gnant neoplasm of cervix (procedure) [code = 133866102] [place] [facility] Encounters Start Date/Time End Date/Time Encounter Type Admission Type [facility] Care Department Encounter ID Source 2019-11-28 00:00:00 2019-11-28 00:00:00 Outpatient ASIYA ESQUIVEL [facility] [id number] Bryan Del Angel 2019-11-06 00:00:00 2019-11-06 00:00:00 Outpatient ASIYA ESQUIVEL [facility] [id number] Bryan Del Angel 2018-11-05 15:00:00 2018-11-05 15:00:00 [facility] [id number] [employer] 2014-05-01 05:48:00 2014-05-01 15:03:00 Outpatient Екатерина Jc [facility] [id number] Results Test Description Test Time Test Comments Results Result Comments Source Comprehensive metabolic panel 2019-09-19 14:45:00 Test Item Glucose (test code = 2345-7) 90 mg/dL 65-99 Fasting reference interval BUN (test code = 3094-0) 12 mg/dL 7-25 Creatinine (test code = 2160-0) 0.96 mg/dL 0.5-1.1 EGFR Non-Afr. Montenegrin (test code = 2775) 69 > OR = 60 mL /min/1.73m2 EGFR (test code = 06383-0) 80 > OR = 60 mL/min/1.73m2 BUN/creatinine ratio (test code = 3097-3) NOT APPLICABLE 6- 22 (al c) Sodium (test code = 2951-2) 139 mmol/L 135-146 Potassium (test code = 2823-3) 4.1 mmol/L 3.5-5.3 Chloride (test code = 2074-0) 104 mmol/L 98-110 CO2 (test code = 2027-9) 24 mmol/L 20-32 Calcium (test code = 98362-7) 9.6 mg/dL 8.6-10.2 Protein (test code = 2885-2) 7.0 g/dL 6.1-8.1 Albumin, S (test code = 1751-7) 4.6 g/dL 3.6-5.1 Globulin, total (test code = 05710-3) 2.4 1.9- 3.7 g/dL (c alc) Albumin/globulin ratio (test code = 1759-0) 1.9 1.0- 2.5 ( calc) Total bilirubin (test code = 1974-2) 0.6 mg/dL 0.2-1.2 Alkaline phosphatase (test code = 6768-6) 53 U/L 31-125 AST (test code = 1920-8) 20 U/L 10-35 ALT (test code = 1742-6) 17 U/L 6-29 OLIMPIA (test code = OLIMPIA) FASTING:YESFASTING: YES RAC (test code = RAC) Performing Organization Info rmation: Site ID: RGA Name: [facility] Address: [address] [place] [phone] Director: Jean Paul Hatfield [place] [facility] [id number] 14:45:00* Test Item Value Reference Range Interpretation Comments Cholesterol, total (test code = 2093-3) 182 mg/dL <200 HDL cholesterol (test code = 2085-9) 52 mg/dL > OR = 50 Triglycerides (test code = 2571-8) 90 mg/dL <150 LDL cholesterol calculated (test code = 24741-6) 111 mg/dL (calc) H Reference range: <100 Desirable range <100 mg/dL for primary prevention; <70 mg/dL for patients with CHD or diabetic patients with > or = 2 CHD risk factors. LDL-C is now calculated using the Urvashi calculation, which is a validated novel method providing better accuracy than the Friedewald equation in the estimation of LDL-C. Sammy SS et al. CURLY. 2013;310(19): 7962-5690 (http:/ /education.Kanshu/faq/RBD323) Cholesterol/HDL ratio (test code = 9830-1) 3.5 <5.0 (calc) Non-HDL cholesterol (test code = 18191-5) 130 <130 mg/dL ( calc) H For patients with diabetes plus 1 major ASCVD risk factor, treating to a non-HDL-C goal of <100 mg/dL (LDL-C of <70 mg/dL) is considered a therapeutic option. OLIMPIA (test code = OLIMPIA) FASTING:YESFASTING: YES RAC (test code = RAC) Performing Organization Info rmation: Site ID: RGA Name: [facility] Address: [address] [place] [phone] Director: Jea nPaul Hatfield Lab Interpretation (test code = 90451-5) Abnormal [facility]itamin B12 [id number] 14:45:00* Test Item Value Reference Range Interpretation Comments Vitamin B12 (test code = 2132-9) 744 pg/mL 200-1100 OLIMPIA (test code = OLIMPIA) FASTING:YESFASTING: YES RAC (test code = RAC) Performing Organization Info rmation: Site ID: RGA Name: [facility] Address: [address] [place] [phone] Director: Jean Paul Hatfield [place] MethodistHemoglobin [id number] 14:45:00* Test Item Value Reference Range Interpretation Comments Hemoglobin A1C (test code = 4548-4) 5.1 <5.7 % of total Hg b For the purpose of screening for the presence ofdiabetes: <5.7% Consistent with the absence of diabetes5.7-6.4% Consistent with increased risk for diabetes (prediabetes)> or =6.5% Consistent with diabetes This assay result is consistent with a decreased riskof diabetes. Currently, no consensus exists regarding use ofhemoglobin A1c for diagnosis of diabetes in children. According to [place] Diabetes Association (ADA)guidelines, hemoglobin A1c <7.0% represents optimalcontrol in non- diabetic patients. Differentmetrics may apply to specific patient populations. Standards of Medical Care in Diabetes(ADA). OLIMPIA (test code = OLIMPIA) FASTING:YESFASTING: YES RAC (test code = RAC) Performing Organization Info rmation: Site ID: RGA Name: [facility] Address: [address] [place] [phone] Director: Jean Paul Hatfield [place] MethodistMagnesium, [id number] 14:45:00* Test Item Value Reference Range Interpretation Comments Magnesium RBC (test code = 01504-6) 5.6 mg/dL 4-6.4 This test was developed and its analytical performance characteristics have been determined by [facility]. It has not been cleared or approved by theA. This assay has been validated pursuant to the CLIA regulations and is used for clinical purposes. OLIMPIA (test code = OLIMPIA) FASTING:YESFASTING: YES RAC (test code = RAC) Performing Organization Info rmation: Site ID: SLI Name: [facility] Address: [address] [place] [address] Director: Josué Aleman M.D., Ph.D [place] [facility]4, [id number] 14:45:00* Test Item Value Reference Range Interpretation Comments T4, free (test code = 3024-7) 1.3 ng/dL 0.8-1.8 OLIMPIA (test code = OLIMPIA) FASTING:YESFASTING: YES RAC (test code = RAC) Performing Organization Info rmation: Site ID: CAMILA Name: [facility] Address: [address] [place] [address] Director: Jean Paul Hatfield [place] MethodistThyroid stimulating [id number] 14:45:00* Test Item Value Reference Range Interpretation Comments TSH (test code = 3016-3) 1.84 mIU/L Reference Range > or = 20 Years 0.40-4.50 Ranges First trimester 0.26-2.66 Second trimester 0.55-2.73 Third trimester 0.43-2.91 OLIMPIA (test code = OLIMPIA) FASTING:YESFASTING: YES RAC (test code = RAC) Performing Organization Info rmation: Site ID: CAMILA Name: [facility] Address: [address] [place] [address] Director: Jean Paul Hatfield [facility] [id number] 14:45:00* Test Item Value Reference Range Interpretation Comments T3 (test code = 3053-6) 98 ng/dL 76-181 OLIMPIA (test code = OLIMPIA) FASTING:YESFASTING: YES RAC (test code = RAC) Performing Organization Info rmation: Site ID: CAMILA Name: [facility] Address: [address] [place] [address] Director: Jean Paul Petersridge [place] [facility]aritanCRP high [id number] 14:45:00* Test Item Value Reference Range Interpretation Comments CRP, high sensitivity (test code = 51244-3) 2.4 mg/L Reference RangeOptimal <1.0Lupe SOLIZ et al. Endocr Pract.2017;23(Suppl 2):1-87. For ages >17 Years:hs-CRP mg/L Risk According to AHA/CDC Guidelines<1.0 Lower relative cardiovascular risk.1.0-3.0 Average relative cardiovascular risk.3.1-10.0 Higher relative cardiovascular risk. Consider retesting in 1 to 2 weeks to exclude a benign transient elevation in the baseline CRP value secondary to infection or inflammation.>10.0 Persistent elevation, upon retesting, may be associated with infection and inflammation. OLIMPIA (test code = OLIMPIA) FASTING:YESFASTING: YES RAC (test code = RAC) Performing Organization Info rmation: Site ID: IG Name: [facility] Address: [address] [place] [address] Director: Dr. Jean Paul Del AngelUrine [id number] 14:45:00* Test Item Value Reference Range Interpretation Comments Urine culture (test code = 630-4) SEE NOTE CULTURE, URINE, ROUTINE Micro Number: [id number] Test Status: Final Specimen Source: URINE Specimen Quality: Adequate Result: Single organism less than 10,000 CFU/mL isolated. These organisms, commonly found on external and internal genitalia, are considered colonizers. No further testing performed. OLIMPIA (test code = OLIMPIA) FASTING:YESFASTING: YES RAC (test code = RAC) Performing Organization Info rmation: Site ID: RGA Name: [facility] Address: [address] [place] [address] Director: Jean Paul Del AngelCBC with platelet and [id number] 14:45:00* Test Item Value Reference Range Interpretation Comments WBC (test code = 6690-2) 7.2 3.8- 10.8 Thousand/uL RBC (test code = 789-8) 4.44 3.80- 5.10 Million/uL HGB (test code = 718-7) 13.8 g/dL 11.7-15.5 HCT (test code = 4544-3) 40.7 % 35-45 MCV (test code = 787-2) 91.7 fL 80-100 MCH (test code = 785-6) 31.1 pg 27-33 MCHC (test code = 786-4) 33.9 g/dL 32-36 RDW (test code = 788-0) 12.3 % 11-15 Platelet count (test code = 777-3) 291 140- 400 Thousand/u L MPV (test code = 776-5) 9.8 fL 7.5-12.5 Neutrophils, absolute (test code = 751-8) 4910 1,500 - 7,80 0 cells/uL Lymphocytes, absolute (test code = 731-0) 1584 850- 3,900 c ells/uL Monocytes, absolute (test code = 742-7) 490 200- 950 cells /uL Eosinophils, absolute (test code = 711-2) 173 15- 500 cell s/uL Basophils, absolute (test code = 704-7) 43 0- 200 cells/u L Neutrophils (test code = 770-8) 68.2 % Lymphocytes (test code = 736-9) 22.0 % Monocytes (test code = 5905-5) 6.8 % Eosinophils (test code = 713-8) 2.4 % Basophils + RC (test code = 706-2) 0.6 % OLIMPIA (test code = OLIMPIA) FASTING:YESFASTING: YES RAC (test code = RAC) Performing Organization Info rmation: Site ID: RGA Name: [facility] Address: [address] [place] [phone] Director: Jean Paul Hatfield [place] BriaistEstradiol [id number] 14:45:00* Test Item Value Reference Range Interpretation Comments Estradiol (test code = 2243-4) 24 pg/mL Reference Range Follicular Phase: 19-144 Mid-Cycle: 64-357 Luteal Phase: 56-214 Postmenopausal: < or = 31 Reference range established on post-pubertal patientpopulation. No pre-pubertal reference rangeestablished using this assay. For any patients forwhom low Estradiol levels are anticipated (e.g. males,pre-pubertal children and hypogonadal/post- menopausal females), the [facility] InstituteEstradiol, Ultrasensitive, LCMSMS assay is recommended(order code 71627). Please note: patients being treated with the drug fulvestrant (Faslodex(R)) have demonstrated significant interference in immunoassay methods for estradiol measurement. The cross reactivity could lead to falsely elevated estradiol test results leading to an inappropriate clinical assessment of estrogen status.[facility] order code [id number], Ultrasensitive LC/MS/MS demonstrates negligible cross reactivity with fulvestrant. OLIMPIA (test code = OLIMPIA) FASTING:YESFASTING: YES RAC (test code = RAC) Performing Organization Info rmation: Site ID: RGA Name: [facility] Address: [address] [place] [id number] Director: Jean Paul Hatfield [place] SamaritanVitamin D 25 hydroxy [id number] 14:45:00* Test Item Value Reference Range Interpretation Comments Vitamin D, 25-hydroxy (test code = 1989-3) 39 ng/mL 30-100 Vitamin D Status 25-OH Vitamin D: Deficiency: <20 ng/mLInsufficiency: 20 - 29 ng/mLOptimal: > or = 30 ng/mL For 25-OH Vitamin D testing on patients on D2-supplementation and patients for whom quantitation of D2 and D3 fractions is required, the QuestAssureD(TM)25-OH VIT D, (D2,D3), LC/MS/MS is recommended: order code 87814 (patients >2yrs). For more information on this test, go to:http://education.[employer]/faq/SGM221(This link is being provided for informational/educational purposes only.) OLIMPIA (test code = OLIMPIA) FASTING:YESFASTING: YES RAC (test code = RAC) Performing Organization Info rmation: Site ID: RGA Name: [facility] Address: [address] [place] [id number] Director: Jean Paul Del AngelAMERICAN HEALTHCARE SYSTEMS and [id number] 14:45:00* Test Item Value Reference Range Interpretation Comments Follicle stimulating hormone (test code = 44093-0) 19.6 mIU /mL Reference Range Follicular Phase 2.5-10.2 Mid-cycle Peak 3.1-17.7 Luteal Phase 1.5- 9.1 Postmenopausal 23.0-116.3 Luteinizing hormone (test code = 84099-9) 9.5 mIU/mL Reference RangeFollicular Phase 1.9-12.5Mid-Cycle Peak 8.7-76.3Luteal Phase 0.5- 16.9Postmenopausal 10.0-54.7 OLIMPIA (test code = OLIMPIA) FASTING:YESFASTING: YES RAC (test code = RAC) Performing Organization Info rmation: Site ID: RGA Name: [facility] Address: [address] [place] [id number] Director: Jean Paul Sheldoner pylori breath [id number] 14:45:00* Test Item Value Reference Range Interpretation Comments H. pylori breath test (test code = 17150-4) NOT DETECTED NOT DETECT ED Antimicrobials, proton pump inhibitors, and bismuthpreparations are known to suppress H. pylori, and ingestion of these prior to H. pylori diagnostic testingmay lead to false negative results. If clinically indicated, the test may be repeated on a new specimenobtained two weeks after discontinuing treatment.However, a positive result is still clinically valid. OLIMPIA (test code = OLIMPIA) FASTING:YESFASTING: YES RAC (test code = RAC) Performing Organization Info rmation: Site ID: RGA Name: [facility] Address: [address] [place] [phone] Director: Jean Paul FraseristInsulin, [id number] 14:45:00* Test Item Value Reference Range Interpretation Comments Insulin (test code = 65521-9) 8.1 uIU/mL Reference Range < or = 19.6 Risk: Optimal < or = 19.6 Moderate NA High >19.6 Adult cardiovascular event risk category cut points (optimal, moderate, high) are based on [facility] population data from 06/2011. This insulin assay shows strong cross-reactivity forsome insulin analogs (lispro, aspart, and glargine)and much lower cross- reactivity with others (detemir,glulisine). OLIMPIA (test code = OLIMPIA) FASTING:YESFASTING: YES RAC (test code = RAC) Performing Organization Info rmation: Site ID: IG Name: [facility] Address: [address] [place] [phone] Director: Dr. Jean Paul Adams MethodistThyroperoxidase [id number] 14:45:00* Test Item Value Reference Range Interpretation Comments Thyroperoxidase Ab (test code = 8099-4) 1 <9 IU/mL OLIMPIA (test code = OLIMPIA) FASTING:YESFASTING: YES RAC (test code = RAC) Performing Organization Info rmation: Site ID: IG Name: [facility] Address: [address] [place] [phone] Director: Dr. Jean Paul Adams MethodistURINALYSIS, COMPLETE, WITH REFLEX TO [id number] 14:45:00 * Test Item Value Reference Range Interpretation Comments Color, UA (test code = 5778-6) YELLOW YELLOW Appearance (test code = 5767-9) CLEAR CLEAR Specific gravity, urine (test code = 5811-5) 1.009 1.001-1.0 35 pH, urine (test code = 5803-2) 6.0 5.0-8.0 Glucose, urine (test code = 17542-2) NEGATIVE NEGATIVE Bilirubin, UA (test code = 5770-3) NEGATIVE NEGATIVE Ketones, UA (test code = 2514-8) 1+ NEGATIVE A Occult blood, urine (test code = 5794-3) 1+ NEGATIVE A Protein, UA (test code = 80213-1) NEGATIVE NEGATIVE Nitrite, UA (test code = 5802-4) NEGATIVE NEGATIVE Leukocyte esterase, UA (test code = 5799-2) TRACE NEGATIVE A WBC, UA (test code = 5821-4) NONE SEEN < OR = 5 /HPF RBC, UA (test code = 63076-7) 0-2 < OR = 2 /HPF Squamous epithelial cells, UA (test code = 59264-8) 0-5 < OR = 5 /HPF Bacteria, UA (test code = 5769-5) NONE SEEN NONE SEEN /HPF Hyaline casts, UA (test code = 5796-8) NONE SEEN NONE SEEN /LPF Reflex (test code = 630-4) CULTURE INDICATED - RESULTS TO FOLLOW OLIMPIA (test code = OLIMPIA) FASTING:YESFASTING: YES RAC (test code = RAC) Performing Organization Info rmation: Site ID: RGA Name: [facility] Address: [address] [place] [phone] Director: Jean Paul Hatfield Lab Interpretation (test code = 23049-9) Abnormal [place] [facility] [id number] 11:18:57Negative (05/01/14 6:18 AM) [facility]
--- NOTE | 2020-06-21 11:05 | NUR ---
received patient from PACU via stretcher. pt is sleeping, no s/s of distress, respirations are even and nonlabored. patient was able to wake up to verbal stimuli and transferred to hospital bed with no assistance. patient was placed on 2L of oxygen per protocol and SCDs were placed to bilateral lower legs.
--- NOTE | 2020-06-21 11:24 | History and Physical ---
CHIEF COMPLAINT: "I had weight loss surgery." HISTORY OF PRESENT ILLNESS: This is a 50-year-old white woman who initially was admitted to [facility] with diagnosis of obesity, calculated BMI of 36 that was complicating her underlying GERD and sleep apnea. Today, the patient underwent successful laparoscopic sleeve gastrectomy as well as a laparoscopic hiatal hernia repair. These two surgeries were performed by her bariatric surgeon, namely Dr. Sarwat Simpson. The patient was experiencing nausea earlier, but it improved significantly with intravenous promethazine. The patient is currently in the postanesthesia care unit. The patient underwent a COVID-19. REVIEW OF SYSTEMS: GENERAL: Weight has been stable. No fever or chills. HEENT: No headaches. No vision changes. CARDIOVASCULAR/RESPIRATORY: No chest pain. No shortness of breath or cough. GI: She was nauseous when she first arrived in the post anesthesia care unit, but it is much improved with intravenous promethazine. : No Balderas catheter in place. NEUROMUSCULAR: No limb weakness or numbness. ALLERGIES: PENICILLIN. HOME MEDICATIONS: 1. Levothyroxine 75 mcg daily. 2. Multivitamin daily. 3. Coldiron-3 fish oil 1000 mg once daily. 4. Zinc sulfate 220 mg daily. 5. Vitamin D3 1000 units daily. FAMILY HISTORY: Noncontributory. PAST SURGICAL HISTORY: 1. Breast reduction surgery. 2. Uterine ablation. 3. Laparoscopic hiatal hernia repair today. 4. Laparoscopic sleeve gastrectomy today. PAST MEDICAL HISTORY: 1. Hypothyroidism. 2. Obesity, BMI of 36. 3. GERD/hiatal hernia. 4. Sleep apnea. SOCIAL HISTORY: The patient is and lives with . She is employed as an executive. She drinks alcohol socially. The patient denies any tobacco use. PHYSICAL EXAMINATION: GENERAL: She is somnolent, but arousable. She is currently in the postanesthesia care unit. VITAL SIGNS: Height of 5 feet 6 inches, weight 225 pounds. BMI 36. Blood pressure is 124/88, pulse 60, respiratory rate is 16, oxygen saturation is 100% on a Venti mask (8 L), temperature 97.3. INTEGUMENT: Skin is warm and dry. No pallor, jaundice or diaphoresis. HEENT: Anterior sclerae with moist mucous membranes. NECK: Supple. CARDIOVASCULAR: Distant heart sounds. Regular rate and rhythm. LUNGS: No rales. No rhonchi. No wheezes. ABDOMEN: Obese yet benign. The patient's laparoscopic trocar incision sites are clean, dry, and intact. No bowel sounds appreciated. EXTREMITIES: No edema or deformity. NEUROLOGIC: Intact. The patient moves all four extremities freely. DIAGNOSES: 1. Status post laparoscopic sleeve gastrectomy. 2. Status post hiatal hernia repair. 3. Obesity, BMI of 36, complicating underlying gastroesophageal reflux disease and sleep apnea. 4. Gastroesophageal reflux disease. 5. Obstructive sleep apnea. PLAN: 1. Encourage incentive spirometry usage to prevent atelectasis. 2. Mobilize patient. 3. Pain control. 4. Resume home medications. 5. We will start subcutaneous enoxaparin today to prevent deep venous thrombosis. 6. Antiemetics as needed. I would like to thank, Dr. Simpson for involving me in the care of this patient. I spent 45 minutes in the care of this patient. MD DELVIN Shabazz/GAYATRI /[id number] NORIS
--- NOTE | 2020-06-21 11:40 | Operative Report ---
DATE OF PROCEDURE: 06/21/2020 SURGEON: Sarwat Simpson MD PREOPERATIVE DIAGNOSES: 1. Hiatal hernia. 2. Chronic gastroesophageal reflux disease. 3. Morbid obesity. 4. BMI of 36. 5. Hypertension. 6. Dyslipidemia. POSTOPERATIVE DIAGNOSES: 1. Hiatal hernia. 2. Chronic gastroesophageal reflux disease. 3. Morbid obesity. 4. BMI of 36. 5. Hypertension. 6. Dyslipidemia. PREOPERATIVE INDICATION: 1. Treat disease, prevent hiatal hernia related complications. 2. Treat disease, prevent complications related to comorbid conditions of obesity. PROCEDURE: 1. Laparoscopic hiatal hernia repair. 2. Laparoscopic sleeve gastrectomy. ANESTHESIA: General. CLINICAL REHABILITATION LIAISON: Khris Watters, surgical technician (needed due to complexity of case). FLUIDS: 1 L crystalloid. ESTIMATED BLOOD LOSS: 40 mL. DRAINS: None. COMPLICATIONS: None. SPECIMENS: Partial stomach. GRAFTS: None. FINDINGS: 1. Hiatal hernia. 2. Negative intraoperative leak test. PROCEDURE IN DETAIL: The patient was brought to the operating room and was intubated under general endotracheal anesthesia. She was positioned supine, both arms abducted, and all pressure points appropriately padded. She was sterilely prepped and draped in the usual fashion. A preprocedure pause was performed identifying the patient, use of perioperative antibiotics, intended procedure, and staff surgeon. Access was gained via a 5 mm left subcostal incision using a Veress needle. The abdomen was insufflated. Four additional trocars placed in standard position. Liver retractor was used to expose the stomach and hiatus. I then incised the gastrohepatic ligament via the pars flaccida technique using a Harmonic Scalpel. Of note, there was a large replaced left gastric vessel coming off the celiac plexus, which I ligated using the Harmonic Scalpel. I then marched along the right and left cecilio of the diaphragm to reduce a hiatal hernia and repaired the hiatus with 0 Surgidac suture in interrupted fashion. Next, we mobilized the greater curvature of stomach from about 3 cm proximal to the pyloric valve to the left cecilio of the diaphragm using the [place] LigaSure device. A 32-Anguillan ViSiGi tube was inserted along the lesser curvature of the stomach. The greater curvature of stomach was resected with 5 firings of a 60 mm purple load Archetype Partnerstronic stapling device reinforced with TRS. We then submerged the sleeve under saline and performed a leak test. No leaks were identified. The specimen was removed through the right periumbilical port site. The port site was closed with 0 Vicryl suture using a Jin Maninder technique. We then verified hemostasis, removed the liver retractor and desufflated the abdomen. Trocars were removed. Incision sites were closed with 4-0 Monocryl suture in a subcuticular fashion. Dermabond dressings were applied. 0.25% bupivacaine was used both at the preperitoneal incision sites. The patient tolerated procedure well. Type of wound was type 2, clean, contaminated. All surgical sponge, instrument counts were correct. MD ROXI Paulino/GAYATRI /[id number]
[2020-06-21] MEDS ORDERED: SCOPOLAMINE 1.5 MG PATCH TOP SCH (12:00)
[2020-06-21 12:02] VITALS: BP 131/80
[2020-06-21] MEDS: LACTATED RINGER'S 1,000 ML IV SCH ×2 (12:21→22:19)
[2020-06-21] MEDS ORDERED: DEXAMETHASONE SOD PHOS INJ 4 MG/ML VIAL ONE (12:22)
[2020-06-21] MEDS ORDERED: GLYCOPYRROLATE INJ 0.2 MG/ML VIAL ONE (12:22)
[2020-06-21] MEDS ORDERED: SEVOFLURANE INHAL SOLN 250 ML PEN BTL ONE (12:22)
[2020-06-21] MEDS ORDERED: NEOSTIGMINE 1 MG/ML 10ML VIAL ONE (12:22)
[2020-06-21] MEDS ORDERED: ROCURONIUM BROMIDE 10 MG/ML 5ML VIAL IV ONE (12:22)
[2020-06-21] MEDS ORDERED: PROPOFOL IV EMULSION 10 MG/ML 20 ML VIAL ONE (12:22)
[2020-06-21] MEDS ORDERED: LIDOCAINE HCL 2% LOCAL INJ 5 ML SDV VIAL INJ ONE (12:22)
[2020-06-21] MEDS ORDERED: KETOROLAC TROMETHAMINE 30 MG/ML VIAL ONE (12:22)
[2020-06-21] MEDS ORDERED: ACETAMINOPHEN 1000 MG/100 ML IV ONE (12:22)
[2020-06-21] MEDS ORDERED: ONDANSETRON HCL INJ 2MG/ML 2ML 2 MG/ML VIAL ONE (12:22)
[2020-06-21 15:35] VITALS: BP 99/60
[2020-06-21] MEDS: ONDANSETRON HCL INJ 2MG/ML 2ML 2 MG/ML VIAL IV PRN ×2 (15:35→20:52)
[2020-06-21] MEDS ORDERED: FENTANYL CITRATE/PF 100MCG/2 ML INJ ONE (18:03)
[2020-06-21] MEDS ORDERED: MIDAZOLAM HCL 2 MG/2 ML VIAL ONE (18:03)
--- NOTE | 2020-06-21 19:16 | NUR ---
WALKING ROUNDS PERFORMED, RECEIVED PT LAYING SEMI FOWLERS IN BED, AAOX3, RR EVEN AND NON-LABORED, ON ROOM AIR. NO S/SX OF DISTRESS NOTED. X5 TROCAR SITES TO ANTERIOR ABD SEALED WITH DERMABOND ALL CDI. LEFT PT LAYING SEMI FOWLERS IN BED, BED IN LOW LOCKED POSITION, SIDE RAILS UPX2, CALL LIGHT AND PHONE WITHIN REACH.
[2020-06-21 20:00] VITALS: BP 130/66
[2020-06-21] MEDS: MORPHINE SULFATE 2 MG/ML SYR 1ML IV PRN (21:02)
[2020-06-21 22:07] VITALS: BP 130/66
[2020-06-22] VITALS: BP 124/63
[2020-06-22] MEDS: MORPHINE SULFATE 2 MG/ML SYR 1ML IV PRN (00:49)
[2020-06-22 04:00] VITALS: BP 128/68
[2020-06-22 05:21] LABS: BASOPHILS % 0.1 % (0.0-1.0); EOSINOPHILS # (AUTO) 0.1 (0.0-0.4); EOSINOPHILS % 0.3 % (0.0-6.0); HEMATOCRIT 38.9 % (34.2-44.1); HEMOGLOBIN 13.6 g/dL (12.0-16.0); LYMPHOCYTES # (AUTO) 1.6 (1.0-3.2); LYMPHOCYTES % 11.2 % (18.0-39.1); MEAN CORPUSCULAR HEMOGLOBIN 31.5 pg (28-32); MONOCYTES # (AUTO) 1.1 (0.2-0.8); MONOCYTES % 7.6 % (4.4-11.3); NEUTROPHILS # (AUTO) 11.6 (2.1-6.9); NEUTROPHILS % 80.3 % (38.7-80.0); PLATELET COUNT 250 x10e3/uL (140-360); RED BLOOD COUNT 4.32 x10e6/uL (3.6-5.1); RED CELL DISTRIBUTION WIDTH 11.7 % (11.7-14.4)
[2020-06-22] MEDS: LACTATED RINGER'S 1,000 ML IV SCH (05:23)
[2020-06-22 05:45] LABS: ALANINE AMINOTRANSFERASE 16 IU/L (0-55); ALKALINE PHOSPHATASE 51 IU/L (40-150); ANION GAP 11.2 mmol/L (8-16); BLOOD UREA NITROGEN 7 mg/dL (7-26); BUN/CREATININE RATIO 9 (6-25); CALCIUM 8.2 mg/dL (8.4-10.2); CARBON DIOXIDE 22 mmol/L (22-29); CHLORIDE 92 mmol/L (98-107); CREATININE, SERUM 0.75 mg/dL (0.57-1.11); EST GLOMERULAR FILTRATION RATE > 60 ML/MIN (60-); GLUCOSE 101 mg/dL (74-118); POTASSIUM 3.2 mmol/L (3.5-5.1); SODIUM 122 mmol/L (136-145)
[2020-06-22 05:46] LABS: ALBUMIN/GLOBULIN RATIO 0.1 (0.8-2.0)
[2020-06-22 05:54] LABS: ALBUMIN 3.6 g/dL (3.5-5.0)
[2020-06-22] MEDS ORDERED: LEVOTHYROXINE SODIUM 75 MCG TAB PO SCH (06:00)
[2020-06-22 06:09] LABS: PHOSPHORUS 2.8 MG/DL (2.3-4.7)
[2020-06-22] MEDS ORDERED: POTASSIUM CHLORIDE 10MEQ EA PO NR (07:00)
--- NOTE | 2020-06-22 07:24 | Discharge Summary ---
ADMIT DIAGNOSES: 1. Obesity BMI 36 complicating underlying gastroesophageal reflux disease and sleep apnea. 2. Gastroesophageal reflux disease. 3. Obstructive sleep apnea. DISCHARGE DIAGNOSES: 1. Status post laparoscopic sleeve gastrectomy. 2. Status post hiatal hernia repair. 3. Obesity, BMI 36 complicating underlying gastroesophageal reflux disease and sleep apnea. 4. Gastroesophageal reflux disease. 5. Obstructive sleep apnea. HOSPITAL COURSE: This is a 50-year-old white woman, who was initially admitted to [facility], also with diagnosis of obesity, BMI 36 that was complicating her underlying GERD and sleep apnea. During hospitalization, the patient underwent successful laparoscopic sleeve gastrectomy as well as laparoscopic hiatal hernia repair. Both the surgery performed by her general surgeon, namely Dr. Sarwat Simpson. The patient tolerated surgery quite well. On day of discharge, the patient was tolerating a clear liquid diet. Condition on discharge stable. The patient did receive subcutaneous enoxaparin during this hospitalization to prevent deep venous thrombosis. She was also encouraged to use incentive spirometry to prevent atelectasis. Once again, her condition on dischargewere stable. DISCHARGE MEDICATIONS: 1. Ondansetron 4 mg one tablet every 6 hours p.r.n. nausea and vomiting, 20 prescribed, no refills. 2. Acetaminophen with codeine 300/30 mg one tablet every 4 hours p.r.n. pain, 30 prescribed, no refills. 3. Levothyroxine 75 mcg daily. 4. Multivitamin daily. 5. Kimball-3 fish oil 1000 mg daily. 6. Zinc sulfate 220 mg daily. 7. Vitamin D3 1000 units daily. FOLLOWUP INSTRUCTIONS: The patient is instructed to follow up with Dr. Sarwat Simpson in one week and with her primary care physician in 2 weeks. MD DELVIN Shabazz/GAYATRI /[id number] cc: Sarwat Simpson MD [facility]
[2020-06-22] MEDS ORDERED: POTASSIUM CHLORIDE 20MEQ/15ML UDC PO NR ×2 (07:30→09:00)
[2020-06-22 07:47] VITALS: BP 127/65
--- NOTE | 2020-06-22 08:00 | NUR ---
labs were drawn at 0500 and sodium was 122, potassium was 3.2. Dr. Gomez ordered 40mEq KCL X2 doses to be given based on initial potassium level and re-ordered a BMP for the abnormally low sodium level. repeat BMP resulted sodium of 139 and potassium of 3.8, notified Dr. Gomez and received orders to not give the second dose of 40mEq KCL. MD requested that the incident be reported because the patient was at high risk for being over medicated with KCL. An [facility] incident report was put in per Dr. Oliva request.
[2020-06-22 08:31] LABS: ANION GAP 14.8 mmol/L (8-16); BLOOD UREA NITROGEN 7 mg/dL (7-26); BUN/CREATININE RATIO 9 (6-25); CALCIUM 8.3 mg/dL (8.4-10.2); CARBON DIOXIDE 25 mmol/L (22-29); CHLORIDE 103 mmol/L (98-107); CREATININE, SERUM 0.81 mg/dL (0.57-1.11); EST GLOMERULAR FILTRATION RATE > 60 ML/MIN (60-); GLUCOSE 102 mg/dL (74-118); POTASSIUM 3.8 mmol/L (3.5-5.1); SODIUM 139 mmol/L (136-145)
[2020-06-22] MEDS: ONDANSETRON HCL INJ 2MG/ML 2ML 2 MG/ML VIAL IV PRN (08:44)
--- NOTE | 2020-06-22 08:50 | NUR ---
Progress Note S: No major complaints O: AF, VSS General- no distress Abdomen- soft, incisions c/d/i A/P: POD 1, s/p Lap sleeve gastrectomy with hiatal hernia repair -Clears, ambulate, IS, OOB to chair -Nutrition consult -D/C home -f/u with me in 1-2 weeks
[2020-06-22] MEDS ORDERED: ENOXAPARIN SOD INJ 40 MG/0.4 ML SYR SC SCH (09:00)
[2020-06-22] MEDS ORDERED: ZINC SULFATE 220 MG CAP PO SCH (09:00)
[2020-06-22] MEDS ORDERED: MULTIVITAMINS/MINERALS TAB PO SCH (09:00)
[2020-06-22] MEDS ORDERED: ZOFRAN4 MG PO (09:39)
[2020-06-22 10:34] VITALS: BP 127/65
--- NOTE | 2020-06-22 10:48 | NUR ---
called [facility] that the patient uses to see if e-script was received. 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 will notify patient with discharge
[2020-06-22 11:00] VITALS: BP 143/79
== END 2020-06-22 10:50 | disposition home or self-care (01) | DRG 621 ==
LOC: OR 05:58 → PACU V 09:44 → MED/SURG 11:04
PROVIDERS: ADMIT Internal Medicine; ATTEND Internal Medicine
PROC: 0DB64Z3 Excision of Stomach, Percutaneous Endoscopic Approach, Vertical (ICD-10-PCS; principal; 2020-06-21 08:00)
PROC: 0WQF4ZZ Repair Abdominal Wall, Percutaneous Endoscopic Approach (ICD-10-PCS; 2020-06-21 08:00)
DX: E66.01 Morbid (severe) obesity due to excess calories (principal); K44.9 Diaphragmatic hernia without obstruction or gangrene; Z68.36 Body mass index [BMI] 36.0-36.9, adult; K21.9 Gastro-esophageal reflux disease without esophagitis; G47.33 Obstructive sleep apnea (adult) (pediatric); Z20.828 Contact with and (suspected) exposure to other viral communicable diseases; E03.9 Hypothyroidism, unspecified; E78.5 Hyperlipidemia, unspecified
CPT/HCPCS: 36415; 80048; 80053; 81025; 83735; 84100; 85025; 93005; J1100; J1170; J1650; J1885; J1956; J2001; J2250; J2270; J2405; J2550; J2710; J3010; J7121